=== PATIENT | female | born 1965 | race Caucasian/White ===

== ENCOUNTER 2023-05-14 07:46 | Day surgery (SDC) | payer BC ==
[2023-05-14] VITALS (14 sets, daily range): BP systolic 106–138; BP diastolic 60–90; PULSE 46–64; RESP 14–16; TEMP 97.3; O2SAT 95–99
[~2023-05-14] VITALS: Ht 165.1 cm; Wt 79.9 kg
[~2023-05-14 07:46] MED LIST: ALPR1TAB7 PO; BENA1TAB86 PO; BUPR-317 PO; DOCUMENT DATE & TIME OF BETA-BLOCKER PO ONE; ESCI20TA39 PO; LEVO50TA PO; LIDOCAINE 1%/EPI 1:100,000 inj. 10 ML multi-dose vial ONE; METO-384 PO; ROSU5TAB12 PO; VORT10TA PO; [UNRECOGNIZED DRUG - OTHER] PO; famotidine 20mg tablet PO ONE; oxymetazoline 15 ML nasal spray NS ONE; ringers solution, lacted 1,000 ML IV SCH; tranexamic acid inj. 1,000 MG in normal saline IV soln 100ML IV ONE
[2023-05-14] MEDS ORDERED: morphine 4 MG/ML inj SYRINge IV PRN (08:00)
[2023-05-14] MEDS ORDERED: meperidine/PF 25mg/ml syringe IV PRN ×3 (08:00)
[2023-05-14] MEDS ORDERED: ringers solution, lacted 1,000 ML IV SCH (08:00)
[2023-05-14] MEDS ORDERED: morphine 2 MG/ML inj. syringe IV PRN (08:00)
[2023-05-14] MEDS ORDERED: ondansetron/PF 4mg/2ml inj IV PRN (08:00)
[2023-05-14] MEDS ORDERED: proCHLORperazine 10 MG/2 ml inj IV PRN (08:00)
[2023-05-14] MEDS ORDERED: enalaprilat dihydrate 2.5mg/2ml vial IV PRN (10:15)
[2023-05-14] MEDS ORDERED: labetalol 20mg/4ml (5mg/ml) syringe IV PRN (10:15)
[2023-05-14] MEDS ORDERED: dexamethasone sod phosphate 10mg/ml inj ONE (10:22)
[2023-05-14] MEDS ORDERED: sevoflurane 250ml liquid IH ONE (10:22)
[2023-05-14] MEDS ORDERED: aprepitant 40mg capsule PO ONE (10:27)
[2023-05-14] MEDS ORDERED: fentaNYL /PF 50mcg/ml 5ml ampule ONE (10:37)
[2023-05-14] MEDS ORDERED: midazolam 1 mg/ML 2ml injection ONE (10:37)
[2023-05-14] MEDS ORDERED: cocaine 4% topical solution 4ml bottle TP ONE (11:05)
[2023-05-14] MEDS ORDERED: mupirocin 2% nasal ointment 1gm UD NS ONE (11:06)
[2023-05-14] MEDS ORDERED: oxymetazoline 15 ML nasal spray NS ONE (11:06)
[2023-05-14] MEDS ORDERED: LIDOcaine 1% w/EPI 1:100,000 30ml vial (MDV) IJ ONE (11:07)
[2023-05-14] MEDS ORDERED: propofol inj 20 ML IV ONE (12:09)
[2023-05-14] MEDS ORDERED: LIDOcaine 2% (20mg/ml) 5ml vial ONE (12:10)
[2023-05-14] MEDS ORDERED: ondansetron/PF 4mg/2ml inj ONE (12:10)
[2023-05-14] MEDS ORDERED: rocuronium 10mg/ml inj IV ONE (12:10)
--- NOTE | 2023-05-14 12:30 | NUR ---
Received from OR via , accompanied by Anesthesiologist and report given by Anesthesiolgist. PATINET SSEDATED, NO S/S OF PAIN, V/S WNL, CSM INACT, COTTONOIDS BILAT SINUS W/ NO VISABLE DRAINAGE.
[2023-05-14] MEDS ORDERED: salt irrigation nasal spray 45 ML SPRAY NS PRN (13:45)
--- NOTE | 2023-05-14 14:20 | NUR ---
KATALINA A&OX4, DENIES PAIN, V/S WNL, CSM INACT, COTTONOIDS BILAT SINUS D/C WITHOUT COMPLICATIONS, PIV D/C, NS SPRAY AND OINTMENT GIVEN. I HAVE REVIEWED D/C INSTRUCTIONS WITH PATIENT AND SHE HAS VERBALIZED UNDERSTANDING. PATIENT D/C HOME WITH ALL BELONGINGS AND FAMILY GAVE TRANSPORT.
== END 2023-05-14 23:59 | disposition home or self-care (01) ==
LOC: PAS 07:46
PROVIDERS: ATTEND Otolaryngology
DX: J34.2 Deviated nasal septum (principal); J32.8 Other chronic sinusitis; J33.8 Other polyp of sinus; J34.3 Hypertrophy of nasal turbinates; F32.A Depression, unspecified; I10 Essential (primary) hypertension; G51.0 Bell's palsy; E03.9 Hypothyroidism, unspecified; M19.90 Unspecified osteoarthritis, unspecified site; F41.9 Anxiety disorder, unspecified; K21.9 Gastro-esophageal reflux disease without esophagitis; Z79.899 Other long term (current) drug therapy; Z98.890 Other specified postprocedural states
CPT/HCPCS: 30520; 30999; 31255; 31267; 61782; 82948; 93005; A6402; J1100; J2250; J2405; J2704; J3010; J3490; J7030; J7050; J7120; J8501; Z7506; Z7508; Z7512; A4618; A6449; A7000